=== PATIENT | female | born 1960 | race Caucasian/White ===

== ENCOUNTER 2017-10-16 12:40 | Observation (INO) | payer SELFPAY ==
[~2017-10-16] VITALS: Ht 157.5 cm; Wt 70.0 kg
[2017-10-16] VITALS (8 sets, daily range): BP systolic 116–133; BP diastolic 68–88; PULSE 72–96; RESP 17–18; TEMP 97.7–98.2; O2SAT 96–98
[~2017-10-16 12:40] MED LIST: LEVA500T33 PO; LORT5TAB PO; METR-1 PO; Z.0.NO CURRENT MEDS
[2017-10-16] MEDS ORDERED: SODIUM CHLORIDE 0.9% FLUSH 10 ML FLUSH IVF PRN (15:45)
[2017-10-16] MEDS ORDERED: SODIUM CHLORID 0.9% 500 ML INJ 500 ML IV ONE (15:45)
[2017-10-16] MEDS ORDERED: NITROGLYCERIN 0.4 MG SL 25 TABS/BTL SL ONE (15:45)
--- NOTE | 2017-10-16 15:46 | PD ---
HPI Chief Complaint: Chest Pain Time Seen by Provider: 15:35 Travel History International Travel<30 days: No Contact w/Intl Traveler<30days: No Traveled to known affect area: No History of Present Illness HPI 57-year-old female with no significant medical history presents to emergency department today for evaluation of acute onset left-sided chest pain that radiated into her left arm with described left arm numbness. This happened while she was at work. She attributed it to being under stress at her job. She was given aspirin in route. She states now the pain is more of a pressure discomfort. She did not feel nauseous. She was not diaphoretic. She did have some lightheadedness. She felt like this may be anxiety, however her anxiety is typically not like this. She denies any focal deficits weakness. She has no cardiac history. No other symptoms to report. PFSH Past Medical History Arthritis: No Asthma: No Autoimmune Disease: No Blood Disorders: No Anxiety: No Depression: No Heart Rhythm Problems: No Cancer: No Cardiovascular Problems: No High Cholesterol: No Chemotherapy: No Chest Pain: No Congestive Heart Failure: No COPD: No Cerebrovascular Accident: No Diabetes: No Endocrine: No GERD: No Glaucoma: No Genitourinary: No Headaches: No Hepatitis: No Hiatal Hernia: No Hypertension: No Immune Disorder: No Kidney Stones: No Musculoskeletal: No Neurologic: No Psychiatric: No Reproductive: No Respiratory: No Migraines: No Myocardial Infarction: No Radiation Therapy: No Renal Failure: No Seizures: No Sickle Cell Disease: No Sleep Apnea: No Thyroid Disease: No Ulcer: No Past Surgical History Abdominal Surgery: Yes () AICD: No Appendectomy: No Arteriovenous Shunt: No Cardiac Surgery: No Section: Yes (x 1) Cholecystectomy: No Ear Surgery: No Endocrine Surgery: No Eye Surgery: No Genitourinary Surgery: No Gynecologic Surgery: Yes () Insulin Pump: No Joint Replacement: No Oral Surgery: No Pacemaker: No Thoracic Surgery: No Social History Alcohol Use: No Tobacco Use: No Substance Use: No Allergies-Medications (Allergen,Severity, Reaction): Coded Allergies: No Known Allergies (Verified Adverse Reaction, Unknown, 10/16/17) Reported Meds & Prescriptions Reported Meds & Active Scripts Active Reported [Anxiety Med ] [Depression Med] Review of Systems Except as stated in HPI: all other systems reviewed are Neg Physical Exam Narrative GENERAL: Well-nourished female patient, sitting up in bed, in no acute distress. SKIN: Focused skin assessment warm/dry. HEAD: Atraumatic. Normocephalic. EYES: Pupils equal and round. No scleral icterus. No injection or drainage. ENT: No nasal bleeding or discharge. Mucous membranes pink and moist. NECK: Trachea midline. No JVD. CARDIOVASCULAR: Regular rate and rhythm. No murmur appreciated. RESPIRATORY: No accessory muscle use. Clear to auscultation. Breath sounds equal bilaterally. GASTROINTESTINAL: Abdomen soft, non-tender, nondistended. Hepatic and splenic margins not palpable. MUSCULOSKELETAL: No obvious deformities. No clubbing. No cyanosis. No edema. NEUROLOGICAL: Awake and alert. No obvious cranial nerve deficits. Motor grossly within normal limits. Normal speech. PSYCHIATRIC: Appropriate mood and affect; insight and judgment normal. Data Data Last Documented VS Vital Signs Date Time Temp Pulse Resp B/P (MAP) Pulse Ox O2 Delivery O2 Flow Rate FiO2 10/16/17 16:31 85 17 119/75 (90) 97 Room Air 10/16/17 12:56 98.2 Orders Orders Electrocardiogram (10/16/17 13:01) Prothrombin Time / Inr (Pt) (10/16/17 15:39) Act Partial Throm Time (Ptt) (10/16/17 15:39) Chest, Single Ap (10/16/17 15:39) Ecg Monitoring (10/16/17 15:39) Iv Access Insert/Monitor (10/16/17 15:39) Oximetry (10/16/17 15:39) Sodium Chloride 0.9% Flush (Ns Flush) (10/16/17 15:45) Nitroglycerin Sl (Nitrostat Sl) (10/16/17 15:45) Sodium Chlorid 0.9% 500 Ml Inj (Ns 500 M (10/16/17 15:45) Basic Metabolic Panel (Bmp) (10/16/17 15:39) Ckmb (Isoenzyme) Profile (10/16/17 15:39) Complete Blood Count With Diff (10/16/17 15:39) Troponin I (10/16/17 15:39) Lipase (10/16/17 15:39) CKMB (10/16/17 15:45) CKMB% (10/16/17 15:45) Admit Order (Ed Use Only) (10/16/17 17:25) Activity Bed Rest With Brp (10/16/17 17:25) Vital Signs (Adult) Q4H (10/16/17 17:25) Cardiac Rhythm .As Directed (10/16/17 17:25) Notify Dr: Other .PRN (10/16/17 17:25) Notify Dr. Parameters (10/16/17 17:25) Resp Oxygen Nasal Cannula (10/16/17 ) Diet Npo (10/17/17 Breakfast) Diet Heart Healthy (10/16/17 Dinner) Ckmb (Isoenzyme) Profile (10/16/17 18:45) Ckmb (Isoenzyme) Profile (10/16/17 21:45) Troponin I (10/16/17 18:45) Troponin I (10/16/17 21:45) Electrocardiogram (10/16/17 18:45) Electrocardiogram (10/16/17 21:45) ^ Obtain (10/16/17 17:25) Sodium Chloride 0.9% Flush (Ns Flush) (10/16/17 17:30) Sodium Chloride 0.9% Flush (Ns Flush) (10/16/17 21:00) Acetaminophen (Tylenol) (10/16/17 17:30) Nitroglycerin Sl (Nitrostat Sl) (10/16/17 17:30) Checkerer Hand / Telemetry LOPEZ.Q8H (10/16/17 17:25) Brandon Bilateral/Knee High LOPEZ.QSHIFT (10/16/17 17:25) Labs Laboratory Tests Test 10/16/17 15:45 White Blood Count 8.4 TH/MM3 Red Blood Count 4.74 MIL/MM3 Hemoglobin 14.5 GM/DL Hematocrit 42.0 % Mean Corpuscular Volume 88.7 FL Mean Corpuscular Hemoglobin 30.6 PG Mean Corpuscular Hemoglobin Concent 34.5 % Red Cell Distribution Width 13.4 % Platelet Count 246 TH/MM3 Mean Platelet Volume 9.2 FL Neutrophils (%) (Auto) 58.9 % Lymphocytes (%) (Auto) 33.7 % Monocytes (%) (Auto) 5.7 % Eosinophils (%) (Auto) 1.0 % Basophils (%) (Auto) 0.7 % Neutrophils # (Auto) 4.9 TH/MM3 Lymphocytes # (Auto) 2.8 TH/MM3 Monocytes # (Auto) 0.5 TH/MM3 Eosinophils # (Auto) 0.1 TH/MM3 Basophils # (Auto) 0.1 TH/MM3 CBC Comment DIFF FINAL Differential Comment Prothrombin Time 10.1 SEC Prothromb Time International Ratio 1.0 RATIO Activated Partial Thromboplast Time 24.3 SEC Blood Urea Nitrogen 10 MG/DL Creatinine 0.72 MG/DL Random Glucose 88 MG/DL Calcium Level 9.3 MG/DL Sodium Level 137 MEQ/L Potassium Level 3.6 MEQ/L Chloride Level 101 MEQ/L Carbon Dioxide Level 31.3 MEQ/L Anion Gap 5 MEQ/L Estimat Glomerular Filtration Rate 83 ML/MIN Total Creatine Kinase 104 U/L Creatine Kinase MB 0.9 NG/ML Troponin I LESS THAN 0.02 NG/ML Lipase 134 U/L MDM Medical Decision Making Medical Screen Exam Complete: Yes Emergency Medical Condition: Yes Medical Record Reviewed: Yes Differential Diagnosis ACS versus chest wall pain versus pleuritic pain versus anxiety Narrative Course 57-year-old female presents to emergency department for evaluation of acute onset left-sided chest pain with associated left arm numbness. This has not happened to her before. Patient appears well. Her vital signs are stable. EKGs reviewed by my attending physician without ST elevation or depression. Patient was given aspirin prior to arrival. Cardiac workup is initiated. Laboratory Tests Test 10/16/17 15:45 White Blood Count 8.4 TH/MM3 Red Blood Count 4.74 MIL/MM3 Hemoglobin 14.5 GM/DL Hematocrit 42.0 % Mean Corpuscular Volume 88.7 FL Mean Corpuscular Hemoglobin 30.6 PG Mean Corpuscular Hemoglobin Concent 34.5 % Red Cell Distribution Width 13.4 % Platelet Count 246 TH/MM3 Mean Platelet Volume 9.2 FL Neutrophils (%) (Auto) 58.9 % Lymphocytes (%) (Auto) 33.7 % Monocytes (%) (Auto) 5.7 % Eosinophils (%) (Auto) 1.0 % Basophils (%) (Auto) 0.7 % Neutrophils # (Auto) 4.9 TH/MM3 Lymphocytes # (Auto) 2.8 TH/MM3 Monocytes # (Auto) 0.5 TH/MM3 Eosinophils # (Auto) 0.1 TH/MM3 Basophils # (Auto) 0.1 TH/MM3 CBC Comment DIFF FINAL Differential Comment Prothrombin Time 10.1 SEC Prothromb Time International Ratio 1.0 RATIO Activated Partial Thromboplast Time 24.3 SEC Blood Urea Nitrogen 10 MG/DL Creatinine 0.72 MG/DL Random Glucose 88 MG/DL Calcium Level 9.3 MG/DL Sodium Level 137 MEQ/L Potassium Level 3.6 MEQ/L Chloride Level 101 MEQ/L Carbon Dioxide Level 31.3 MEQ/L Anion Gap 5 MEQ/L Estimat Glomerular Filtration Rate 83 ML/MIN Total Creatine Kinase 104 U/L Creatine Kinase MB 0.9 NG/ML Troponin I LESS THAN 0.02 NG/ML Lipase 134 U/L Chest x-rays without acute cardiopulmonary disease. I discussed the patient my attending physician. Patient will be admitted observation to the chest pain center. Plan is discussed with the patient and she is in agreement with this plan of care. Diagnosis Primary Impression: Chest pain Qualified Codes: R07.9 - Chest pain, unspecified Admitting Information Admitting Physician Requests: Observation Condition: Stable Lanny Curiel Oct 16, 2017 15:46
[2017-10-16 16:09] LABS: AUTOMATED NEUTROPHIL # 4.9 TH/MM3 (1.8-7.7); BASOPHIL # 0.1 TH/MM3 (0-0.2); BASOPHIL % 0.7 % (0.0-2.0); EOSINOPHIL # 0.1 TH/MM3 (0-0.4); HEMOGLOBIN 14.5 GM/DL (11.6-15.3); LYMPH % 33.7 % (9.0-44.0); LYMPHOCYTE # 2.8 TH/MM3 (1.0-4.8); MEAN CELL VOLUME 88.7 FL (80.0-100.0); MEAN CORPUSCULAR HEMOGLOBIN 30.6 PG (27.0-34.0); MEAN CORPUSCULAR HGB CONC 34.5 % (32.0-36.0); MEAN PLATELET VOLUME 9.2 FL (7.0-11.0); MONO % 5.7 % (0.0-8.0); MONOCYTE # 0.5 TH/MM3 (0-0.9); NEUT % 58.9 % (16.0-70.0); PLATELET COUNT 246 TH/MM3 (150-450); RED BLOOD COUNT 4.74 MIL/MM3 (4.00-5.30); RED CELL DISTRIBUTION WIDTH 13.4 % (11.6-17.2); WHITE BLOOD COUNT 8.4 TH/MM3 (4.0-11.0)
[2017-10-16] MEDS ORDERED: ANXIETY MED (16:12)
[2017-10-16] MEDS ORDERED: DEPRESSION MED (16:12)
[2017-10-16 16:18] LABS: PROTHROMBIN TIME - PATIENT 10.1 SEC (9.8-11.6)
--- NOTE | 2017-10-16 16:21 | RADRPT ---
EXAM DATE/TIME: 10/16/2017 15:54 [facility] COMPARISON: No previous studies available for comparison. INDICATIONS : Patient complains of left sided chest pain. MEDICAL HISTORY : None. SURGICAL HISTORY : None. ENCOUNTER: Initial ACUITY: 1 day PAIN SCORE: 2/10 LOCATION: chest FINDINGS: A single view of the chest demonstrates the lungs to be symmetrically aerated without evidence of mas s, infiltrate or effusion. The cardiomediastinal contours are unremarkable. Osseous structures are intact. CONCLUSION: 1. No acute cardiopulmonary disease. Delon Coates MD on October 16, 2017 at 16:16 Board Certified Radiologist. This report was verified electronically.
[2017-10-16 16:25] LABS: BICARBONATE 31.3 MEQ/L (21.0-32.0); BLOOD UREA NITROGEN 10 MG/DL (7-18); CALCIUM 9.3 MG/DL (8.5-10.1); CHLORIDE 101 MEQ/L (98-107); CREATININE 0.72 MG/DL (0.50-1.00); GLOMERULAR FILTRATION RATE 83 ML/MIN (>89); GLUCOSE,RANDOM 88 MG/DL (74-106); SODIUM (NA) 137 MEQ/L (136-145)
[2017-10-16 16:29] LABS: TROPONIN I LESS THAN 0.02 NG/ML (0.02-0.05)
[2017-10-16] MEDS ORDERED: ACETAMINOPHEN 500 MG CPLT PO PRN (17:30)
[2017-10-16] MEDS ORDERED: SODIUM CHLORIDE 0.9% FLUSH 10 ML FLUSH IV FLUSH PRN (17:30)
[2017-10-16] MEDS ORDERED: NITROGLYCERIN 0.4 MG SL 25 TABS/BTL SL PRN (17:30)
[2017-10-16 19:34] LABS: TROPONIN I LESS THAN 0.02 NG/ML (0.02-0.05)
[2017-10-16] MEDS: SODIUM CHLORIDE 0.9% FLUSH 10 ML FLUSH IV FLUSH SCH (21:20)
[2017-10-16 23:00] LABS: TROPONIN I LESS THAN 0.02 NG/ML (0.02-0.05)
[2017-10-17 04:36] VITALS: BP 115/65; PULSE 71; RESP 17; TEMP 97.9; O2SAT 96
[2017-10-17 06:14] VITALS: PULSE 81
[2017-10-17 07:18] VITALS: BP 107/64; PULSE 77; RESP 16; TEMP 98.3; O2SAT 94
[2017-10-17 07:45] VITALS: PULSE 75
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
[2017-10-17] MEDS: SODIUM CHLORIDE 0.9% FLUSH 10 ML FLUSH IV FLUSH SCH (09:00)
[2017-10-17 11:23] VITALS: BP 103/61; PULSE 86; RESP 18; TEMP 98; O2SAT 93
--- NOTE | 2017-10-17 13:28 | EKG ---
Date Performed: 10/16/2017 Time Performed: 21:57:23 PTAGE: 57 years EKG: Sinus rhythm MODERATE INTRAVENTRICULAR CONDUCTION DELAY BORDERLINE ECG PREVIOUS TRACING : 10/16/2017 18.47 DOCTOR: Cristobal Azar Interpretating Date/Time 10/17/2017 13:27:25
--- NOTE | 2017-10-17 13:30 | EKG ---
Date Performed: 10/16/2017 Time Performed: 18:47:03 PTAGE: 57 years EKG: Sinus rhythm NORMAL ECG NO CHANGE NO PREVIOUS TRACING DOCTOR: Cristobal Azar Interpretating Date/Time 10/17/2017 13:29:19
--- NOTE | 2017-10-17 13:30 | EKG ---
Date Performed: 10/16/2017 Time Performed: 15:45:34 PTAGE: 57 years EKG: Sinus rhythm NORMAL ECG NO CHANGE PREVIOUS TRACING : 09/27/2009 13.30 DOCTOR: Cristobal Azar Interpretating Date/Time 10/17/2017 13:29:52
--- NOTE | 2017-10-17 13:37 | HHI.DCPOC ---
Discharge Care Plan Diagnosis: (1) Chest pain (2) Anxiety Goals to Promote Your Health * To prevent worsening of your condition and complications * To maintain your health at the optimal level Directions to Meet Your Goals Take your medications as prescribed Follow your dietary instruction Follow activity as directed Keep your appointments as scheduled Take your immunizations and boosters as scheduled If your symptoms worsen call your PCP, if no PCP go to Urgent Care Center or Emergency Room Smoking is Dangerous to Your Health. Avoid second hand smoke Call the 24-hour hour crisis hotline for domestic abuse at Myriam Lepe Oct 17, 2017 13:37
[2017-10-17 15:20] VITALS: BP 116/75; PULSE 92; RESP 18; TEMP 98.1; O2SAT 99
--- NOTE | 2017-10-17 16:47 | TR ---
Date Performed: 10/17/2017 Time Performed: 10:06:43 DOCTOR: Cristobal Azar DRUG LIST: CLINICAL HISTORY: REASON FOR TEST: REASON FOR ENDING: OBSERVATION: CONCLUSION: Bryce protocol performed and complete test stopped secondary to reaching target hear t rate and leg fatigue. No reproducible chest discomfort. No diagnostic ST changes. Good BP response. Recovery quick and unremarkable.Maximum AW=[id number] Target HR Achieved=93.0% Maximum TA=980/70 Total Exer cise Time=6:01 COMMENTS:
== END 2017-10-17 17:09 ==
LOC: NEPC 12:40 → UNDOADMOB 17:33 → NEDA 17:33 → NEPHCDU 18:25 → NEDA 18:25 → UNDODISOB 10-17 17:09
PROVIDERS: ADMIT Internal Medicine Cardiovascular Disease; ATTEND Internal Medicine Cardiovascular Disease
DX: F41.9 Anxiety disorder, unspecified (principal); R07.9 Chest pain, unspecified; R20.0 Anesthesia of skin; R42 Dizziness and giddiness
CPT/HCPCS: 71045; 80048; 82550; 82552; 83690; 84484; 85025; 85610; 85730; 93005; 93017; 96360; 99285; G0378; J7040